=== PATIENT | male | born 1975 | race Hispanic/Latino ===

== ENCOUNTER 2021-01-28 12:22 | Emergency (ER) | payer BC, OTHER ==
--- NOTE | 2021-01-28 15:22 | EDPHYS ---
Physician Documentation [facility] Name: Aldo Palma Age: 45 yrs Sex: Male : 1975 Arrival Date: 01/28/2021 Time: 12:30 Bed 16 Private MD: ED Physician Bj Page HPI: 01/28 15:20 This 45 yrs old Male presents to ER via Ambulatory with complaints of pm1 Headache, Body Ache. 15:20 The patient or guardian reports Headache, fever, chills and fatigue for the past 3 pm1 days. One episode of diarrhea daily. Onset: The symptoms/episode began/occurred 6 day(s) ago. Severity of symptoms: in the emergency department the symptoms have improved. Modifying factors: The symptoms are alleviated by steroids, antibiotics. Associated signs and symptoms: Pertinent negatives: chest pain, Shortness of breath. The patient has not experienced similar symptoms in the past. The patient has been recently seen by a physician: with similar presenting complaints, and apparently given a diagnosis of covid at [place] [facility], was given a prescription for antibiotics, steroid treatment. Historical: - Allergies: 12:44 No Known Allergies; ll1 - PMHx: 12:44 None; ll1 - PSHx: 12:44 Appendectomy; ll1 - Immunization history:: Flu vaccine is not up to date. - Social history:: Smoking status: Patient denies any tobacco usage or history of. ROS: 15:20 Eyes: Negative for injury, pain, redness, and discharge, ENT: Negative for injury, pm1 pain, and discharge, Neck: Negative for injury, pain, and swelling, Cardiovascular: Negative for chest pain, palpitations, and edema, Respiratory: Negative for shortness of breath, cough, wheezing, and pleuritic chest pain. 15:20 Back: Negative for injury and pain, : Negative for injury, bleeding, discharge, and swelling, MS/Extremity: Negative for injury and deformity, Skin: Negative for injury, rash, and discoloration. 15:20 Constitutional: Positive for body aches, chills, fever, Negative for poor PO intake. 15:20 Abdomen/GI: Positive for diarrhea, Negative for abdominal pain, nausea and vomiting. 15:20 Neuro: Positive for headache, Negative for numbness, tingling, weakness. Exam: 15:20 Constitutional: This is a well developed, well nourished patient who is awake, alert, pm1 and in no acute distress. Head/Face: Normocephalic, atraumatic. 15:20 ENT: Nares patent. No nasal discharge, no septal abnormalities noted. Tympanic membranes are normal and external auditory canals are clear. Oropharynx with no redness, swelling, or masses, exudates, or evidence of obstruction, uvula midline. Mucous membranes moist. Neck: Trachea midline, no thyromegaly or masses palpated, and no cervical lymphadenopathy. Supple, full range of motion without nuchal rigidity, or vertebral point tenderness. No Meningismus. Chest/axilla: Normal chest wall appearance and motion. Nontender with no deformity. No lesions are appreciated. 15:20 Back: No spinal tenderness. No costovertebral tenderness. Full range of motion. Skin: Warm, dry with normal turgor. Normal color with no rashes, no lesions, and no evidence of cellulitis. MS/ Extremity: Pulses equal, no cyanosis. Neurovascular intact. Full, normal range of motion. 15:20 Eyes: Exam is negative for acute changes, Extraocular movements: no acute changes, Conjunctiva: normal, Sclera: no acute changes, icterus, is not appreciated. 15:20 Cardiovascular: Rate: normal, Rhythm: regular, Pulses: no pulse deficits are appreciated, Heart sounds: normal, Edema: is not appreciated. 15:20 Respiratory: Exam negative for acute changes, respiratory distress, shortness of breath, Breath sounds: are clear throughout. 15:20 Abdomen/GI: Inspection: abdomen appears normal, Palpation: abdomen is soft and non-tender, in all quadrants. 15:20 Neuro: Exam negative for acute changes, Orientation: is normal, Mentation: is normal, Motor: is normal, moves all fours, Gait: is steady, at a normal pace, without difficulty. Vital Signs: 12:44 BP 110 / 69; Pulse 95; Resp 17; Temp 98.8; Pulse Ox 100% ; Weight 88.45 kg; Height 5 ll1 ft. 7 in. (170.18 cm); Pain 7/10; 14:35 BP 119 / 71; Pulse 90; Resp 16; Pulse Ox 96% on R/A; vg1 12:44 Body Mass Index 30.54 (88.45 kg, 170.18 cm) ll1 MDM: 14:38 Patient medically screened. pm1 15:20 ED course: Patient refused all work up. I offered lab work and IV fluids. Patient said pm1 that he felt fine and would drink fluids at home. He reports that he actually did not want to come to the ER but came due to his significant other wanting him to get evaluated. He was washing his vehicle prior to coming to the ER. 15:21 Data reviewed: vital signs. Data interpreted: Pulse oximetry: on room air is 96 %. pm1 Interpretation: normal. Counseling: I had a detailed discussion with the patient and/or guardian regarding: the historical points, exam findings, and any diagnostic results supporting the discharge/admit diagnosis, the need for outpatient follow up, to return to the emergency department if symptoms worsen or persist or if there are any questions or concerns that arise at home. Administered Medications: No medications were administered Disposition: 16:12 Co-signature as Attending Physician, Bj Page MD. rn Disposition: 01/28/21 15:22 Discharged to Home. Impression: Coronavirus infection, unspecified. - Condition is Stable. - Discharge Instructions: COVID-19. - Medication Reconciliation Form, Thank You Letter, Antibiotic Education, Prescription Opioid Use form. - Follow up: Emergency Department; When: As needed; Reason: Worsening of condition. Follow up: Private Physician; When: 2 - 3 days; Reason: Recheck today's complaints, Continuance of care, Re-evaluation by your physician. - Problem is new. - Symptoms have improved. Signatures: Bj Page MD MD rn Marinas, Patrick, NP POLICE CHIEF pm1 Jacki Medellin RN RN vg1 Eriberto Nguyen RN RN ll1 Corrections: (The following items were deleted from the chart) 15:27 15:22 01/28/2021 15:22 Discharged to Home. Impression: Coronavirus infection, vg1 unspecified. Condition is Stable. Forms are Medication Reconciliation Form, Thank You Letter, Antibiotic Education, Prescription Opioid Use. Follow up: Emergency Department; When: As needed; Reason: Worsening of condition. Follow up: Private Physician; When: 2 - 3 days; Reason: Recheck today's complaints, Continuance of care, Re-evaluation by your physician. Problem is new. Symptoms have improved. pm1
--- NOTE | 2021-01-28 15:22 | ER ---
Nurse's Notes [facility] Name: Aldo Palma Age: 45 yrs Sex: Male : 1975 Arrival Date: 01/28/2021 Time: 12:30 Bed 16 Private MD: Diagnosis: Coronavirus infection, unspecified Presentation: 01/28 12:44 Chief complaint: Patient states: Covid positive since 01/22. Finished antibiotic and ll1 steroids, but got worse when they were done. Diarrhea , KHAN, fevers, chills, fatigue for 3 days. Coronavirus screen: Client denies travel out of the [place] in the last 14 days. chills, congestion, cough unrelated to allergies, diarrhea, difficulty breathing, fatigue, fever, headache, muscle pain, nausea, shaking with chills, shortness of breath, loss of taste or smell, Client presents with at least one sign or symptom that may indicate coronavirus-19. Standard/surgical mask placed on the client. Ebola Screen: Patient denies travel to an Ebola-affected area in the 21 days before illness onset. Initial Sepsis Screen: Does the patient meet any 2 criteria? No. Patient's initial sepsis screen is negative. Does the patient have a suspected source of infection? No. Patient's initial sepsis screen is negative. Risk Assessment: Do you want to hurt yourself or someone else? Patient reports no desire to harm self or others. Onset of symptoms was January 22, 2021. 12:44 Method Of Arrival: Ambulatory ll1 12:44 Acuity: TASHA 3 ll1 Historical: - Allergies: 12:44 No Known Allergies; ll1 - PMHx: 12:44 None; ll1 - PSHx: 12:44 Appendectomy; ll1 - Immunization history:: Flu vaccine is not up to date. - Social history:: Smoking status: Patient denies any tobacco usage or history of. Screenin:35 Abuse screen: Denies threats or abuse. Nutritional screening: No deficits noted. vg1 Tuberculosis screening: No symptoms or risk factors identified. Fall Risk No fall in past 12 months (0 pts). No secondary diagnosis (0 pts). No IV (0 pts). Ambulatory Aid- None/Bed Rest/Nurse Assist (0 pts). Gait- Normal/Bed Rest/Wheelchair (0 pts) Mental Status- Oriented to own ability (0 pts). Total [place] Fall Scale indicates No Risk (0-24 pts). Assessment: 14:34 General: Appears in no apparent distress. comfortable, Behavior is calm, cooperative. vg1 Pain: Complains of pain in body Pain currently is 7 out of 10 on a pain scale. Neuro: Level of Consciousness is awake, alert, obeys commands, Oriented to person, place, time, situation. Cardiovascular: Patient's skin is warm and dry. Respiratory: Airway is patent Respiratory effort is even, unlabored, Breath sounds are clear bilaterally. GI: Reports diarrhea, Patient currently denies nausea, vomiting. : No signs and/or symptoms were reported regarding the genitourinary system. EENT: No signs and/or symptoms were reported regarding the EENT system. Derm: Skin is intact, is healthy with good turgor. Musculoskeletal: Circulation, motion, and sensation intact. 15:13 Reassessment: Pt left room to go sit with daughter in vehicle. vg1 Vital Signs: 12:44 BP 110 / 69; Pulse 95; Resp 17; Temp 98.8; Pulse Ox 100% ; Weight 88.45 kg; Height 5 ll1 ft. 7 in. (170.18 cm); Pain 7/10; 14:35 BP 119 / 71; Pulse 90; Resp 16; Pulse Ox 96% on R/A; vg1 12:44 Body Mass Index 30.54 (88.45 kg, 170.18 cm) ll1 ED Course: 12:30 Patient arrived in ED. bp1 12:46 Triage completed. ll1 12:46 Arm band placed on. ll1 14:14 Deepak Hsu NP is PHCP. pm1 14:14 Bj Page MD is Attending Physician. pm1 14:14 Jacki Medellin, RN is Primary Nurse. vg1 14:35 Patient has correct armband on for positive identification. Bed in low position. Call vg1 light in reach. Side rails up X 1. Adult w/ patient. 15:27 No provider procedures requiring assistance completed. Patient did not have IV access vg1 during this emergency room visit. Administered Medications: No medications were administered Outcome: 15:22 Discharge ordered by . pm1 15:27 Discharged to home ambulatory. vg1 15:27 Condition: stable 15:27 Discharge instructions given to patient, Instructed on discharge instructions, follow up and referral plans. Demonstrated understanding of instructions, follow-up care. 15:27 Patient left the ED. vg1 Signatures: Deepak Hsu NP LOGISTICS/SHIPPER pm1 Jacki Medellin RN RN vg1 Eriberto Nguyen RN RN ll1 Saba Patterson
[2021-01-28 15:34] VITALS: TEMP 98.8
[2021-01-28 15:36] VITALS: BP 119/71; O2SAT 96
== END 2021-01-28 15:27 | disposition home or self-care (01) ==
LOC: ER 12:22
DX: U07.1 COVID-19 (principal)
CPT/HCPCS: 99281